=== PATIENT | male | born 1950 | race Caucasian/White ===

== ENCOUNTER 2019-07-30 08:34 | Emergency (ER) | payer MEDICARE, OTHER ==
[~2019-07-30] VITALS: Ht 172.7 cm; Wt 88.5 kg
--- NOTE | 2019-07-30 08:35 | NUR ---
AAOX3, BIB family c/o sudden/worsening neck pain and swelling that started yesterday. RR is even and unlabored with NAD noted. Afebrile. Skin is warm and dry. Awaiting md for eval.
--- NOTE | 2019-07-30 08:50 | NUR ---
SEEN AND EXAMINED BY .
--- NOTE | 2019-07-30 09:02 | NUR ---
IV LINE ESTABLISHED, BLOOD DRAWN AND SENT TO LAB.
--- NOTE | 2019-07-30 09:07 | NUR ---
Blood drawn sent to the lab by Yahir Arroyo
--- NOTE | 2019-07-30 09:10 | NUR ---
PT SILVANO [phone]
[2019-07-30 09:11] LABS: BASOPHILS # (AUTO) 0.1 /CMM (0.0-0.2); BASOPHILS % (AUTO) 0.5 % (0.0-2.0); EOSINOPHILS % (AUTO) 0.2 % (0.0-6.0); HEMATOCRIT 46 % (39-51); HEMOGLOBIN 15.1 g/dL (13.5-17.5); LYMPHOCYTES # (AUTO) 1.8 /CMM (0.8-4.8); LYMPHOCYTES % (AUTO) 10.3 % (20.0-44.0); MEAN CORPUSCULAR HGB CONC 33 g/dl (31.0-36.0); MEAN CORPUSCULAR VOLUME 85 fL (80-96); MONOCYTES # (AUTO) 1.3 /CMM (0.1-1.30); MONOCYTES % (AUTO) 7.1 % (2.0-12.0); NEUTROPHILS # (AUTO) 14.5 /CMM (1.8-8.9); NEUTROPHILS % (AUTO) 81.9 % (43.0-81.0); PLATELET COUNT (AUTO) 225 /CMM (150-450); RED BLOOD CELL COUNT(AUTO) 5.39 MIL/uL (4.5-6.0); WHITE BLOOD COUNT (AUTO) 17.7 K/uL (4.3-11.0)
[2019-07-30 09:18] LABS: CALCIUM, SERUM 8.8 mg/dL (8.5-10.1); POTASSIUM 4.1 mmol/L (3.5-5.1)
[2019-07-30] MEDS ORDERED: IOHEXOL-300 100 ML VIAL IV ONE (09:26)
[2019-07-30] MEDS ORDERED: CT SWABBABLE VALVE TRANS SET 1 EA INFUS.SET MC ONE (09:26)
[2019-07-30] MEDS ORDERED: IV NS 0.9% 250 ML IV ONE (09:27)
--- NOTE | 2019-07-30 09:29 | NUR ---
PT IS WHEELED TO CT SCAN VIA WHEELCHAIR.
--- NOTE | 2019-07-30 11:18 | NUR ---
CALLED DR. HODGES [phone]. AWAITING FOR HIM TO CALL US BACK.
[2019-07-30] MEDS ORDERED: PIPERACILLIN /TAZOBACTAM 3.375 G in IV D5W 50 ML IV ONE (11:30)
[2019-07-30] MEDS ORDERED: VANCOMYCIN 1 GM in IV D5W 250 ML IV ONE (11:30)
[2019-07-30] MEDS ORDERED: ASPI-1152 PO (11:38)
[2019-07-30] MEDS ORDERED: CANA100T PO (11:38)
[2019-07-30] MEDS ORDERED: ALBU18HF2 IH (11:38)
[2019-07-30] MEDS ORDERED: CLOP75TA15 PO (11:38)
[2019-07-30] MEDS ORDERED: METF-440 PO (11:38)
[2019-07-30] MEDS ORDERED: CHOL200074 PO (11:38)
[2019-07-30] MEDS ORDERED: AMIO200T4 PO (11:38)
[2019-07-30] MEDS ORDERED: ATOR40TA PO (11:38)
[2019-07-30] MEDS ORDERED: CALC500T52 PO (11:38)
[2019-07-30] MEDS ORDERED: CARV6.252 PO (11:38)
[2019-07-30] MEDS ORDERED: PIPERACILLIN /TAZOBACTAM 3.375 G VIAL IV ONE (11:40)
[2019-07-30] MEDS ORDERED: VANCOMYCIN 1 GM VIAL ONE (11:40)
--- NOTE | 2019-07-30 12:16 | NUR ---
CALLED [facility] [phone] DEREK [phone] NURSING FOOD PREPARATION SUPERVISOR [phone] PRE-ACCESS TO ARRANGE TRANSFER CALLED [facility] .
--- NOTE | 2019-07-30 13:45 | NUR ---
KAMRY[facility] CALLED AND PRESENTED CASE TO [facility] FAXED TO [phone]
--- NOTE | 2019-07-30 13:55 | NUR ---
[facility] CALLED FROM [facility], NO BEDS AVAILABLE.
--- NOTE | 2019-07-30 14:00 | NUR ---
CALLED [facility] [phone] FAXED INFO TO [phone] CALL BACK AFTER 60MIN
--- NOTE | 2019-07-30 14:00 | NUR ---
CALLED [facility], DO NOT HAVE ENT.
--- NOTE | 2019-07-30 14:59 | NUR ---
CALLED [facility] [phone] TO SEND THIS PT FAXED TO [phone]
[2019-07-30 16:23] VITALS: BP 140/55
--- NOTE | 2019-07-30 16:52 | NUR ---
Patient does not wish to proceed with medical care recommended by Dr. pham. Patient given information related to possible complications, up to and including , which could occur as a result of leaving the hospital at this time. Patient verbalizes understanding of risks involved due to leaving against medical advice. Patient has signed AMA form.
--- NOTE | 2019-07-30 16:53 | NUR ---
IV removed. Catheter intact and site benign. Pressure and 4x4 applied to site. No bleeding noted.
== END 2019-07-30 16:54 | disposition left against medical advice (07) ==
LOC: ER 08:46
DX: K11.5 Sialolithiasis (principal); R22.1 Localized swelling, mass and lump, neck; D72.828 Other elevated white blood cell count; E78.5 Hyperlipidemia, unspecified; E11.9 Type 2 diabetes mellitus without complications; I25.10 Atherosclerotic heart disease of native coronary artery without angina pectoris; I11.0 Hypertensive heart disease with heart failure; I50.9 Heart failure, unspecified; Z79.899 Other long term (current) drug therapy; Z79.82 Long term (current) use of aspirin; Z95.1 Presence of aortocoronary bypass graft
CPT/HCPCS: 36415; 70491; 80048; 85025; 87040 ×2; 96365; 96368; 99285; J2543 ×2; J3370; J7050; J7060; Q9967